=== PATIENT | male | born 1950 | race Caucasian/White ===

== ENCOUNTER → 2017-01-20 | Outpatient (CLI) | payer OTHER ==
[2017-01-20 09:34] LABS: ANION GAP 7 mmol/L (7-16); BUN 21 mg/dL (7-18); CALCIUM 8.8 mg/dL (8.5-10.1); CHLORIDE 106 mmol/L (98-107); CO2 27 mmol/L (21-32); CREATININE 1.1 mg/dL (0.7-1.3); GLUCOSE 168 mg/dL (74-106); POTASSIUM 4.5 mmol/L (3.5-5.1); SODIUM 140 mmol/L (136-145)
[2017-01-20 09:39] LABS: ALKALINE PHOSPHATASE 44 U/L (46-116); CHOLESTEROL 137 mg/dL (<200); HDL CHOLESTEROL 34 mg/dL (>40); LDL CHOLESTEROL 75 mg/dL (<100); SGOT 16 U/L (15-37); SGPT 26 U/L (30-65); TOTAL BILIRUBIN 0.4 mg/dL (<0.1-1.0); TOTAL PROTEIN 6.9 g/dL (6.4-8.2); TRIGLYCERIDE 140 mg/dL (<150); VLDL 28 mg/dL (<40)
[2017-01-20 23:12] LABS: CREATININE (ALB/CR) 40.1 mg/dL (Not Estab.)
[2017-01-21 03:14] LABS: ESTIMATED AVERAGE GLUCOSE 146 mg/dL (()); GLYCOHEMOGLOBIN (HGB A1C) 6.7 % (4.8-5.6)
[2017-01-21 16:08] LABS: MICROALB:CREAT < 29.9 (0.0-30.0); MICROALBUMIN-RND URINE < 12.0 ug/mL (Not Estab.)
== END ==
LOC: LABMALL 08:34
DX: I10 Essential (primary) hypertension (principal); E11.9 Type 2 diabetes mellitus without complications; E78.5 Hyperlipidemia, unspecified